=== PATIENT | female | born 1980 | race Caucasian/White ===

== ENCOUNTER 2016-12-20 13:50 | Emergency (ER) | payer SELFPAY ==
[~2016-12-20 13:50] MED LIST: COLACE100 MG PO; FEROSUL325 MG PO; IBUPROFEN800 MG PO; PRENATAL1 EACH PO
[2016-12-20] MEDS ORDERED: NO HOME MEDICATION XX (14:28)
== END 2016-12-20 15:02 ==
LOC: EDMED 13:50
DX: G43.909 Migraine, unspecified, not intractable, without status migrainosus (principal); F17.200 Nicotine dependence, unspecified, uncomplicated